=== PATIENT | male | born 1980 | race Caucasian/White ===

== ENCOUNTER 2020-04-10 15:26 | Emergency (ER) | payer MEDICAID ==
[~2020-04-10] VITALS: Ht 182.9 cm; Wt 78.5 kg
[2020-04-10 15:32] VITALS: Ht 182.9 cm; Wt 78.5 kg
[2020-04-10 17:30] VITALS: BP 119/80
== END 2020-04-10 18:24 | disposition home or self-care (01) ==
LOC: ED 15:26
DX: R10.9 Unspecified abdominal pain (principal); Z98.890 Other specified postprocedural states